=== PATIENT | female | born 2000 | race Caucasian/White ===

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

== ENCOUNTER 2018-01-30 22:10 | Inpatient (IN) | payer OTHER ==
[2018-01-30 23:58] LABS: AMPHETAMINES LEVEL URINE NEGATIVE (NEGATIVE); BARBITURATES URINE NEGATIVE (NEGATIVE); BENZODIAZEPINES URINE NEGATIVE (NEGATIVE); CANNABINOIDS URINE NEGATIVE (NEGATIVE); COCAINE METABOLITE URINE NEGATIVE (NEGATIVE); METHADONE URINE NEGATIVE (NEGATIVE); OPIATES URINE NEGATIVE (NEGATIVE); PHENCYCLIDINE URINE NEGATIVE (NEGATIVE)
[2018-01-31 00:28] LABS: HEMATOCRIT 38.8 % (36.0-47.0); HEMOGLOBIN 12.9 g/dl (12.0-15.5); MEAN CORPUSCULAR HEMOGLOBIN 28.2 pg (27.0-33.0); MEAN CORPUSCULAR HGB CONC 33.2 g/dl (32.0-36.5); MEAN CORPUSCULAR VOLUME 84.7 fl (80.0-96.0); PLATELET COUNT, AUTOMATED 267 10^3/uL (150-450); RED BLOOD COUNT 4.58 10^6/uL (4.00-5.40); RED CELL DISTRIBUTION WIDTH 13.7 % (11.5-14.5); WHITE BLOOD COUNT 7.1 10^3/uL (4.0-10.0)
[2018-01-31 00:29] LABS: CONTROL LINE HCG INT CTR LINE PRESENT; HCG, SERUM QUALITATIVE NEGATIVE (NEGATIVE)
[2018-01-31 00:46] LABS: ALBUMIN 3.8 GM/DL (3.2-5.2); ALBUMIN/GLOBULIN RATIO 1.15 (1.00-1.93); ALKALINE PHOSPHATASE 101 U/L (45-117); ALT/SGPT 15 U/L (12-78); ANION GAP 8 MEQ/L (8-16); AST/SGOT 12 U/L (7-37); BILIRUBIN,DIRECT 0.1 MG/DL (0.0-0.2); BILIRUBIN,TOTAL 0.4 MG/DL (0.2-1.0); BLOOD UREA NITROGEN 10 MG/DL (7-18); CALCIUM LEVEL 8.7 MG/DL (8.5-10.1); CARBON DIOXIDE LEVEL 23 MEQ/L (21-32); CHLORIDE LEVEL 111 MEQ/L (98-107); CREATININE FOR GFR 0.76 MG/DL (0.55-1.30); ETHYL ALCOHOL (ETHANOL) < 0.003 % (0.000-0.010); GLUCOSE, FASTING 123 MG/DL (70-100); POTASSIUM SERUM 4.1 MEQ/L (3.5-5.1); SALICYLATE LEVEL < 1.7 MG/DL (5.0-30.0); SODIUM LEVEL 142 MEQ/L (136-145); TOTAL PROTEIN 7.1 GM/DL (6.4-8.2)
[2018-01-31 00:50] LABS: ACETAMINOPHEN LEVEL < 2.0 UG/ML (10.0-30.0)
[2018-01-31] MEDS ORDERED: traZODone 50 MG TAB PO (01:00)
[2018-01-31] MEDS ORDERED: MAALOX 30 ML SUSP *UDC PO (01:00)
[2018-01-31] MEDS ORDERED: ACETAMINOPHEN TAB 650MG DOSE (2X325MG) PO (01:00)
[2018-01-31] MEDS ORDERED: MOM 30ML SUSPENSION UDC PO (01:00)
[2018-01-31] MEDS: metFORMIN (GLUCOPHAGE) 500 MG TAB PO ×2 (09:40→21:03)
[2018-01-31] MEDS ORDERED: NICOTINE 14 MG/24 HR TRANSDERMAL TD (11:30)
[2018-01-31] MEDS: ESCITALOPRAM OXALATE 10 MG TAB (LEXAPRO) PO (11:48)
[2018-01-31] MEDS: RAMELTEON 8 MG TAB (ROZEREM) PO (21:03)
[2018-01-31] MEDS: PRAZOSIN 1 MG CAP PO (21:03)
[2018-01-31] MEDS: MICONAZOLE-7 VAGINAL 2% CREAM 47.7 GM PV (21:05)
[2018-02-01 09:37] LABS: AMORPHOUS SEDIMENT RFX SMALL (NEGATIVE); KETONE, URINE AUTO RFX NEGATIVE (NEGATIVE); LEUKOCYTE ESTERASE UR AUTO RFX NEGATIVE (NEGATIVE); MUCUS, URINE RFX SMALL (NEGATIVE); NITRITE, URINE AUTO RFX NEGATIVE (NEGATIVE); RBC, URINE AUTO RFX 10 /HPF (0-3); SPECIFIC GRAVITY UR AUTO RFX 1.028 (1.002-1.035); SQUAM EPITHELIAL CELL UR AURFX 3 /HPF (0-6); WBC, URINE AUTO RFX 2 /HPF (0-3)
[2018-02-01] MEDS: ESCITALOPRAM OXALATE 10 MG TAB (LEXAPRO) PO (10:18)
[2018-02-01] MEDS: metFORMIN (GLUCOPHAGE) 500 MG TAB PO ×2 (10:18→22:07)
[2018-02-01 10:52] LABS: HEPATITIS B CORE ANTIBODY IGM NEGATIVE (NEGATIVE)
[2018-02-01 10:53] LABS: HIV 1&2 SCREEN CENTAUR NEGATIVE (NEGATIVE)
[2018-02-01 10:54] LABS: HEPATITIS A ANTIBODY IGM NEGATIVE (NEGATIVE)
[2018-02-01 10:58] LABS: HEPATITIS B SURFACE ANTIGEN NEGATIVE (NEGATIVE)
[2018-02-01 13:53] LABS: CHLAMYDIA DNA AMPLIFICATION NEGATIVE (NEGATIVE); GC DNA AMPLIFICATION NEGATIVE (NEGATIVE)
[2018-02-01] MEDS: PRAZOSIN 1 MG CAP PO (22:07)
[2018-02-01] MEDS: RAMELTEON 8 MG TAB (ROZEREM) PO (22:07)
[2018-02-01] MEDS: MICONAZOLE-7 VAGINAL 2% CREAM 47.7 GM PV (22:08)
[2018-02-02] MEDS: ESCITALOPRAM OXALATE 10 MG TAB (LEXAPRO) PO (08:13)
[2018-02-02] MEDS: metFORMIN (GLUCOPHAGE) 500 MG TAB PO ×2 (08:13→21:31)
[2018-02-02] MEDS: ONDANSETRON 4 MG TAB (S0181) PO (16:01)
[2018-02-02] MEDS: RAMELTEON 8 MG TAB (ROZEREM) PO (21:31)
[2018-02-02] MEDS: PRAZOSIN 1 MG CAP PO (21:33)
[2018-02-02] MEDS: MICONAZOLE-7 VAGINAL 2% CREAM 47.7 GM PV (21:57)
[2018-02-03] MEDS: ESCITALOPRAM OXALATE 10 MG TAB (LEXAPRO) PO (08:57)
[2018-02-03] MEDS: metFORMIN (GLUCOPHAGE) 500 MG TAB PO ×2 (08:57→22:28)
[2018-02-03] MEDS: PRAZOSIN 1 MG CAP PO (22:28)
[2018-02-03] MEDS: MICONAZOLE-7 VAGINAL 2% CREAM 47.7 GM PV (22:29)
[2018-02-03] MEDS: RAMELTEON 8 MG TAB (ROZEREM) PO (22:29)
[2018-02-04] MEDS: ONDANSETRON 4 MG TAB (S0181) PO ×2 (09:31→21:46)
[2018-02-04] MEDS: metFORMIN (GLUCOPHAGE) 500 MG TAB PO ×2 (09:31→21:46)
[2018-02-04] MEDS: ESCITALOPRAM OXALATE 10 MG TAB (LEXAPRO) PO (09:31)
[2018-02-04] MEDS: hydrOXYzine 10 MG TAB PO (10:58)
[2018-02-04] MEDS: RAMELTEON 8 MG TAB (ROZEREM) PO (21:46)
[2018-02-04] MEDS: MICONAZOLE-7 VAGINAL 2% CREAM 47.7 GM PV (21:47)
[2018-02-04] MEDS: PRAZOSIN 1 MG CAP PO (21:47)
[2018-02-05] MEDS: metFORMIN (GLUCOPHAGE) 500 MG TAB PO ×2 (10:34→21:59)
[2018-02-05] MEDS: ONDANSETRON 4 MG TAB (S0181) PO (10:34)
[2018-02-05] MEDS: ESCITALOPRAM OXALATE 10 MG TAB (LEXAPRO) PO (10:35)
[2018-02-05] MEDS: hydrOXYzine 10 MG TAB PO (17:11)
[2018-02-05] MEDS: PRAZOSIN 1 MG CAP PO (21:59)
[2018-02-05] MEDS: MICONAZOLE-7 VAGINAL 2% CREAM 47.7 GM PV (21:59)
[2018-02-05] MEDS: RAMELTEON 8 MG TAB (ROZEREM) PO (21:59)
[2018-02-06] MEDS: ESCITALOPRAM OXALATE 10 MG TAB (LEXAPRO) PO (08:23)
[2018-02-06] MEDS: metFORMIN (GLUCOPHAGE) 500 MG TAB PO ×2 (08:24→22:32)
[2018-02-06] MEDS: zolPIDEM TARTRATE 5 MG TAB PO (22:32)
[2018-02-06] MEDS: MICONAZOLE-7 VAGINAL 2% CREAM 47.7 GM PV (22:33)
[2018-02-06] MEDS: PRAZOSIN 1 MG CAP PO (22:33)
[2018-02-07] MEDS: metFORMIN (GLUCOPHAGE) 500 MG TAB PO (08:42)
[2018-02-07] MEDS: ESCITALOPRAM OXALATE 10 MG TAB (LEXAPRO) PO (08:42)
[2018-02-07] MEDS: hydrOXYzine 10 MG TAB PO (10:17)
== END 2018-02-07 11:00 | disposition home or self-care (01) | DRG 882 ==
LOC: M ED INP 01-31 01:00 → M PSY 01-31 01:31 → M ED 22:10
DX: F43.10 Post-traumatic stress disorder, unspecified (principal); F32.2 Major depressive disorder, single episode, severe without psychotic features; E28.2 Polycystic ovarian syndrome; Z91.410 Personal history of adult physical and sexual abuse; Z62.811 Personal history of psychological abuse in childhood; Z81.8 Family history of other mental and behavioral disorders; Z79.899 Other long term (current) drug therapy; Z79.84 Long term (current) use of oral hypoglycemic drugs

== ENCOUNTER 2018-02-07 15:21 | Inpatient (IN) | payer OTHER ==
[2018-02-07 17:21] LABS: HEMATOCRIT 38.3 % (36.0-47.0); HEMOGLOBIN 12.9 g/dl (12.0-15.5); MEAN CORPUSCULAR HEMOGLOBIN 28.3 pg (27.0-33.0); MEAN CORPUSCULAR HGB CONC 33.7 g/dl (32.0-36.5); PLATELET COUNT, AUTOMATED 263 10^3/uL (150-450); RED BLOOD COUNT 4.56 10^6/uL (4.00-5.40); RED CELL DISTRIBUTION WIDTH 13.5 % (11.5-14.5); WHITE BLOOD COUNT 8.2 10^3/uL (4.0-10.0)
[2018-02-07 17:26] LABS: CONTROL LINE HCG INT CTR LINE PRESENT; HCG, SERUM QUALITATIVE NEGATIVE (NEGATIVE)
[2018-02-07 17:42] LABS: ACETAMINOPHEN LEVEL < 2.0 UG/ML (10.0-30.0); ALBUMIN 4.1 GM/DL (3.2-5.2); ALBUMIN/GLOBULIN RATIO 1.28 (1.00-1.93); ALKALINE PHOSPHATASE 102 U/L (45-117); ALT/SGPT 13 U/L (12-78); ANION GAP 6 MEQ/L (8-16); AST/SGOT 8 U/L (7-37); BILIRUBIN,DIRECT 0.1 MG/DL (0.0-0.2); BILIRUBIN,TOTAL 0.5 MG/DL (0.2-1.0); BLOOD UREA NITROGEN 8 MG/DL (7-18); CALCIUM LEVEL 8.4 MG/DL (8.5-10.1); CARBON DIOXIDE LEVEL 25 MEQ/L (21-32); CHLORIDE LEVEL 110 MEQ/L (98-107); CREATININE FOR GFR 0.72 MG/DL (0.55-1.30); GLUCOSE, FASTING 96 MG/DL (70-100); SALICYLATE LEVEL < 1.7 MG/DL (5.0-30.0); SODIUM LEVEL 141 MEQ/L (136-145); TOTAL PROTEIN 7.3 GM/DL (6.4-8.2)
[2018-02-07 17:46] LABS: AMPHETAMINES LEVEL URINE NEGATIVE (NEGATIVE); BARBITURATES URINE NEGATIVE (NEGATIVE); BENZODIAZEPINES URINE NEGATIVE (NEGATIVE); CANNABINOIDS URINE NEGATIVE (NEGATIVE); COCAINE METABOLITE URINE NEGATIVE (NEGATIVE); METHADONE URINE NEGATIVE (NEGATIVE); OPIATES URINE NEGATIVE (NEGATIVE); PHENCYCLIDINE URINE NEGATIVE (NEGATIVE)
[2018-02-07 17:58] LABS: ETHYL ALCOHOL (ETHANOL) < 0.003 % (0.000-0.010)
[2018-02-07] MEDS ORDERED: MOM 30ML SUSPENSION UDC PO (23:15)
[2018-02-07] MEDS ORDERED: traZODone 50 MG TAB PO (23:15)
[2018-02-07] MEDS ORDERED: MAALOX 30 ML SUSP *UDC PO (23:15)
[2018-02-07] MEDS ORDERED: zolPIDEM TARTRATE 5 MG TAB PO (23:30)
[2018-02-08] MEDS: ESCITALOPRAM OXALATE 10 MG TAB (LEXAPRO) PO (08:18)
[2018-02-08] MEDS: metFORMIN (GLUCOPHAGE) 500 MG TAB PO ×2 (08:18→18:01)
[2018-02-08] MEDS: RAMELTEON 8 MG TAB (ROZEREM) PO (22:45)
[2018-02-08] MEDS: PRAZOSIN 1 MG CAP PO (22:46)
[2018-02-09] MEDS: metFORMIN (GLUCOPHAGE) 500 MG TAB PO ×2 (09:45→18:30)
[2018-02-09] MEDS: ESCITALOPRAM OXALATE 5MG TABLET (LEXAPRO) PO (09:45)
[2018-02-09] MEDS: RAMELTEON 8 MG TAB (ROZEREM) PO (22:51)
[2018-02-09] MEDS: PRAZOSIN 1 MG CAP PO (22:52)
[2018-02-10] MEDS: ESCITALOPRAM OXALATE 5MG TABLET (LEXAPRO) PO (08:36)
[2018-02-10] MEDS: metFORMIN (GLUCOPHAGE) 500 MG TAB PO ×2 (08:36→17:50)
[2018-02-10] MEDS: RAMELTEON 8 MG TAB (ROZEREM) PO (22:08)
[2018-02-10] MEDS: PRAZOSIN 1 MG CAP PO (22:10)
[2018-02-11] MEDS: ESCITALOPRAM OXALATE 5MG TABLET (LEXAPRO) PO (08:37)
[2018-02-11] MEDS: metFORMIN (GLUCOPHAGE) 500 MG TAB PO ×2 (08:38→17:53)
[2018-02-11] MEDS: RAMELTEON 8 MG TAB (ROZEREM) PO (23:36)
[2018-02-11] MEDS: PRAZOSIN 1 MG CAP PO (23:37)
[2018-02-12] MEDS: ESCITALOPRAM OXALATE 5MG TABLET (LEXAPRO) PO (08:58)
[2018-02-12] MEDS: metFORMIN (GLUCOPHAGE) 500 MG TAB PO ×2 (08:58→17:47)
[2018-02-12] MEDS: PRAZOSIN 1 MG CAP PO (21:56)
[2018-02-12] MEDS: RAMELTEON 8 MG TAB (ROZEREM) PO (21:56)
[2018-02-12] MEDS: hydrOXYzine 10 MG TAB PO (21:57)
[2018-02-13] MEDS: ESCITALOPRAM OXALATE 5MG TABLET (LEXAPRO) PO (08:29)
[2018-02-13] MEDS: metFORMIN (GLUCOPHAGE) 500 MG TAB PO ×2 (08:29→17:55)
[2018-02-13] MEDS: hydrOXYzine 10 MG TAB PO ×2 (10:13→23:03)
[2018-02-13] MEDS: RAMELTEON 8 MG TAB (ROZEREM) PO (23:03)
[2018-02-13] MEDS: PRAZOSIN 1 MG CAP PO (23:04)
[2018-02-14] MEDS: metFORMIN (GLUCOPHAGE) 500 MG TAB PO (09:00)
[2018-02-14] MEDS: ESCITALOPRAM OXALATE 5MG TABLET (LEXAPRO) PO (09:01)
== END 2018-02-14 14:00 | disposition home or self-care (01) | DRG 882 ==
LOC: M PSY 02-08 21:19 → M ED 15:21 → M ED INP 19:06 → M PSY 21:30
DX: F43.10 Post-traumatic stress disorder, unspecified (principal); F33.9 Major depressive disorder, recurrent, unspecified; L70.9 Acne, unspecified; E28.2 Polycystic ovarian syndrome; Z79.899 Other long term (current) drug therapy; Z79.84 Long term (current) use of oral hypoglycemic drugs; Z62.811 Personal history of psychological abuse in childhood; Z91.410 Personal history of adult physical and sexual abuse; Z81.8 Family history of other mental and behavioral disorders; Z76.5 Malingerer [conscious simulation]

== ENCOUNTER 2018-03-15 21:23 | Emergency (ER) | payer OTHER ==
[2018-03-15] MEDS: NS 1,000 ML IV (22:45)
[2018-03-15] MEDS: MORPHINE 2 MG/ML 1ML SYRINGE (J2270) IV (23:38)
[2018-03-15] MEDS: ONDANSETRON 4MG/2ML VIAL (J2405) IV (23:57)
[2018-03-16 00:05] LABS: CONTROL LINE HCG INT CTR LINE PRESENT; HCG, SERUM QUALITATIVE NEGATIVE (NEGATIVE)
[2018-03-16 00:09] LABS: ALBUMIN 3.9 GM/DL (3.2-5.2); ALBUMIN/GLOBULIN RATIO 1.15 (1.00-1.93); ALKALINE PHOSPHATASE 113 U/L (45-117); ALT/SGPT 17 U/L (12-78); ANION GAP 7 MEQ/L (8-16); AST/SGOT 23 U/L (7-37); BILIRUBIN,DIRECT 0.2 MG/DL (0.0-0.2); BLOOD UREA NITROGEN 10 MG/DL (7-18); CALCIUM LEVEL 8.8 MG/DL (8.5-10.1); CARBON DIOXIDE LEVEL 22 MEQ/L (21-32); CHLORIDE LEVEL 110 MEQ/L (98-107); CREATININE FOR GFR 0.71 MG/DL (0.55-1.30); GLUCOSE, FASTING 104 MG/DL (70-100); LIPASE 182 U/L (73-393); POTASSIUM SERUM 4.8 MEQ/L (3.5-5.1); SODIUM LEVEL 139 MEQ/L (136-145); TOTAL PROTEIN 7.3 GM/DL (6.4-8.2)
[2018-03-16 00:12] LABS: BASO % 0.3 % (0.0-1.0); EOS # 0.4 10^3/uL (0.0-0.50); EOS % 4.8 % (0.0-3.0); HEMATOCRIT 41.1 % (36.0-47.0); HEMOGLOBIN 14.1 g/dl (12.0-15.5); IMMATURE GRANULOCYTE % 0.5 % (0-3.0); LYMPH % 13.2 % (24.0-44.0); MEAN CORPUSCULAR HEMOGLOBIN 28.6 pg (27.0-33.0); MEAN CORPUSCULAR HGB CONC 34.3 g/dl (32.0-36.5); MEAN CORPUSCULAR VOLUME 83.4 fl (80.0-96.0); MONO # 0.6 10^3/uL (0.0-0.8); MONO % 8.3 % (0.0-5.0); NEUTROPHILS # 5.6 10^3/uL (1.8-7.7); NEUTROPHILS % 72.9 % (36.0-66.0); PLATELET COUNT, AUTOMATED 227 10^3/uL (150-450); RED BLOOD COUNT 4.93 10^6/uL (4.00-5.40); RED CELL DISTRIBUTION WIDTH 13.4 % (11.5-14.5); WHITE BLOOD COUNT 7.7 10^3/uL (4.0-10.0)
[2018-03-16 00:32] LABS: LACTIC ACID SEPSIS PROTOCOL 1.3 MMOL/L (0.4-2.0)
[2018-03-16 01:05] LABS: KETONE, URINE AUTO RFX NEGATIVE (NEGATIVE); LEUKOCYTE ESTERASE UR AUTO RFX NEGATIVE (NEGATIVE); NITRITE, URINE AUTO RFX NEGATIVE (NEGATIVE); RBC, URINE AUTO RFX 2 /HPF (0-3); SPECIFIC GRAVITY UR AUTO RFX 1.017 (1.002-1.035); SQUAM EPITHELIAL CELL UR AURFX 1 /HPF (0-6); WBC, URINE AUTO RFX 0 /HPF (0-3)
== END 2018-03-16 01:54 | disposition home or self-care (01) ==
LOC: M ED 21:23
DX: K52.9 Noninfective gastroenteritis and colitis, unspecified (principal); F41.9 Anxiety disorder, unspecified; F33.9 Major depressive disorder, recurrent, unspecified; E28.2 Polycystic ovarian syndrome; Z87.19 Personal history of other diseases of the digestive system; Z87.42 Personal history of other diseases of the female genital tract; Z79.899 Other long term (current) drug therapy
CPT/HCPCS: J2405